=== PATIENT | male | born 1975 | race Caucasian/White ===

== ENCOUNTER 2023-08-06 09:52 | Emergency (ER) | payer OTHER, SELFPAY ==
[2023-08-06 10:02] VITALS: BP 113/87; PULSE 103; RESP 16; TEMP 36.4; O2SAT 99
--- NOTE | 2023-08-06 10:35 | ED.MALEGU ---
HPI - Male Genitourinary General Chief complaint: Urogenital-Male Stated complaint: Uti symptoms Time Seen by Provider: 08/06/23 10:31 Source: patient and RN notes reviewed Mode of arrival: ambulatory Limitations: no limitations History of Present Illness HPI Narrative: Patient presents today complaining of a 2 day history of urinary urgency, frequency, hematuria. Denies abdominal pain, flank pain, fever, sweats or chills, nausea or vomiting. He has taken no [id number] medication for symptoms prior to arrival. Related Data Home Medications Medication Instructions Recorded Confirmed atorvastatin 40 mg tablet 40 mg PO DAILY 08/06/23 08/06/23 dextromethorphan IR 45 1 tablet PO DIRECTED 08/06/23 08/06/23 mg-bupropion ER 105 mg biphasic tablet (Auvelity) eszopiclone 3 mg tablet 3 mg PO DAILY 08/06/23 08/06/23 insulin glargine U-300 conc 300 1 unit subcut DIRECTED 08/06/23 08/06/23 unit/mL (1.5 mL) subcutaneous pen ([employer] SoloStar U-300 Insulin) lamotrigine 200 mg tablet 200 mg PO DAILY 08/06/23 08/06/23 lorazepam 0.5 mg tablet 0.5 mg PO DIRECTED 08/06/23 08/06/23 quetiapine 200 mg tablet 200 mg PO DAILY 08/06/23 08/06/23 Allergies Allergy/AdvReac Type Severity Reaction Status Date / Time No Known Allergies Allergy Mild Verified 08/06/23 10:17 Review of Systems Review of Systems: CONSTITUTIONAL: Denies body aches, fever, chills, or sweats. EYES: Denies visual changes, redness, or discharge. ENT: Denies rhinorrhea, congestion, sore throat, or otalgia. CARDIOVASCULAR: Denies chest pain, palpitations, or edema. RESPIRATORY: Denies cough or dyspnea. GASTROINTESTINAL: Denies abdominal pain, nausea, vomiting, or diarrhea. GENITOURINARY: + dysuria, hematuria, urgency, frequency SKIN: Denies rash, itching, or wounds. MUSCULOSKELETAL: Denies back pain, joint pain, or myalgia. NEUROLOGIC: Denies headache, numbness, tingling, or weakness. PSYCH: Denies depression or anxiety. [facility] Past Medical History Medical History (Updated 08/06/23 @ 10:41 by Aline Ramírez, [facility], ) Diabetes High cholesterol Major depressive disorder Social anxiety disorder Comments At time of signature, I have reviewed and agree with nursing past medical, surgical, social and family history unless otherwise noted. Please see nursing chart for further information. There is no relevant family history pertinent to the presenting complaint Exam Narrative: GENERAL: Well-appearing, well-nourished, and in no acute distress. HEAD: Normocephalic, atraumatic. EYES: EOMI. No redness or drainage. Conjunctivae normal. ENT: Mucous membranes pink and moist. NECK: Normal AROM. CHEST: No respiratory distress. EXTREMITIES: Normal range of motion. No edema. SKIN: Warm, dry, no rash. Capillary refill normal. Normal skin turgor. NEURO: No focal deficits. Alert and oriented x3. Gait steady. PSYCH: Normal affect. No signs of depression or anxiety. Course Course Level of Care: Express Care Visit Vital Signs Vital signs: Vital Signs Temperature 97.6 F 08/06/23 10:02 Pulse Rate 103 H 08/06/23 10:02 Respiratory Rate 16 08/06/23 10:02 Blood Pressure 113/87 08/06/23 10:02 Pulse Oximetry 99 08/06/23 10:02 Temperature 97.6 F 08/06/23 10:02 Pulse Rate 103 H 08/06/23 10:02 Respiratory Rate 16 08/06/23 10:02 Blood Pressure 113/87 08/06/23 10:02 Pulse Oximetry 99 08/06/23 10:02 Reviewed MDM - Male Genitourinary MDM Narrative Medical decision making narrative: Urinalysis is consistent with UTI. Prescription for Keflex sent to pharmacy. Anticipatory guidance given. Differential Diagnosis Differential diagnosis: Likely urinary tract infection, prostatitis and other (Pyelonephritis) Lab Data Attestation: I reviewed the patient's lab results. Labs: Urine Glucose 3+ Reference Range: Negative Urine Bi
== END 2023-08-06 10:43 | disposition home or self-care (01) ==
PROVIDERS: Emergency Provider Nurse Practitioner; PCP Internal Medicine
DX: N30.01 Acute cystitis with hematuria (principal); E11.9 Type 2 diabetes mellitus without complications; E78.00 Pure hypercholesterolemia, unspecified; F32.9 Major depressive disorder, single episode, unspecified; F40.11 Social phobia, generalized
CPT/HCPCS: 81003; 87086; 99213; G0463

== ENCOUNTER 2024-05-01 17:04 | Emergency (ER) | payer OTHER, SELFPAY ==
[2024-05-01 17:17] VITALS: BP 151/90; PULSE 86; RESP 20; TEMP 36.6; O2SAT 99
[2024-05-01 17:20] VITALS: BP 151/90; PULSE 86; RESP 20; TEMP 36.6; O2SAT 99
--- NOTE | 2024-05-01 18:12 | ED_ITS ---
HPI - Eye Problem General Chief complaint: Eye Problems Stated complaint: left eye red,itchy,light sensitive Time Seen by Provider: 05/01/24 18:13 Source: patient, RN notes reviewed and old records reviewed Mode of arrival: ambulatory Limitations: no limitations History of Present Illness HPI Narrative: Patient presents with complaints of left eye pain. He wears contact lenses, states that yesterday he noticed some irritation, so took out his contact lens, has been wearing glasses since. He states that he is having some photophobia and left eye pain. He denies any known injury or trauma. Denies any visual disturbances. No other concerns or complaints at this Related Data Home Medications Medication Instructions Recorded Confirmed atorvastatin 40 mg tablet 40 mg PO DAILY 08/06/23 05/01/24 dextromethorphan IR 45 1 tablet PO DIRECTED 08/06/23 05/01/24 mg-bupropion ER 105 mg biphasic tablet (Auvelity) eszopiclone 3 mg tablet 3 mg PO DAILY 08/06/23 05/01/24 insulin glargine U-300 conc 300 1 unit subcut DIRECTED 08/06/23 05/01/24 unit/mL (1.5 mL) subcutaneous pen ([employer] SoloStar U-300 Insulin) lamotrigine 200 mg tablet 200 mg PO DAILY 08/06/23 05/01/24 lorazepam 0.5 mg tablet 0.5 mg PO DIRECTED 08/06/23 05/01/24 quetiapine 200 mg tablet 200 mg PO DAILY 08/06/23 05/01/24 metformin 500 mg tablet 500 mg PO BID 05/01/24 05/01/24 pantoprazole 40 mg tablet,delayed 50 mg PO DAILY 05/01/24 05/01/24 release Allergies Allergy/AdvReac Type Severity Reaction Status Date / Time No Known Allergies Allergy Mild Verified 05/01/24 17:16 Review of Systems Review of Systems: All systems reviewed & are unremarkable except as noted in HPI and below Constitutional: Constitutional: Reports no additional constitutional complaints Eyes: Eyes: Reports as per HPI, Reports irritation, Reports eye pain and Reports photophobia ENT: Reports system reviewed and no additional complaints, except as documented Cardiovascular: Cardiovascular: Reports no additional cardiovascular complaints Respiratory: Respiratory: Reports no additional respiratory complaints Gastrointestinal: Gastrointestinal: Reports no additional gastrointestinal complaints [facility] Past Medical History Medical History Diabetes High cholesterol Major depressive disorder Social anxiety disorder Comments At the time of my signature, I reviewed and agree with the nursing past medical, surgical, social, and family history. There is no relevant family history pertinent to the patient complaint. Exam Const: General: cooperative, no acute distress, alert and awake Orientation/consciousness: oriented to person, oriented to place and oriented to time HENMT: Head: normal to inspection Eyes: Alignment and Position: alignment normal and position normal Conjunctivae: conjunctival abnormality left conjunctival injection Sclera: scleral abnormality left scleral injection Cornea: corneas abnormal on the left fluorescein used and abrasion curved and at the following clock position (2 o clock) Resp: Effort & Inspection: normal respiratory effort and able to speak in complete sentences Auscultation: clear to auscultation bilaterally, no crackles, no rales, no rhonchi and no wheezes Cardio: Palpation: normal PMI Rate: regular rate Rhythm: regular rhythm Heart sounds: S1 normal heart sound present and S2 normal heart sound present Neuro: General: oriented to person, oriented to place and oriented to time Cranial nerves: Yes CN's II-XII intact bilaterally Psych: Appearance: grossly normal Thought process: Normal thought process present Insight: Good insight present (Psych) Judgement: Good judgement present (Psych) Course Course Level of Care: Express Care Visit Vital Signs Vital signs: Vital Signs Temperature 97.8 F 05/01/24 17:17 Pulse Rate 86 05/01/24 17:17 Respiratory Rate 20 05/01/24 17:17 Blood Pressure 151/90 H 05/01/24 17:17 Pulse Oximetry 99 05/01/24 17:17 Oxygen Delivery Room Air 05/01/24 17:17 Temperature 97.8 F 05/01/24 17:20 Pulse Rate 86 05/01/24 17:20 Respiratory Rate 20 05/01/24 17:20 Blood Pressure 151/90 H 05/01/24 17:20 Pulse Oximetry 99 05/01/24 17:20 Oxygen Delivery Room Air 05/01/24 17:20 Reviewed MDM - Eye Problem MDM Narrative Medical decision making narrative: Exam consistent with corneal abrasion. Patient advised to use drops as prescribed, follow with eye care provider. Do not wear contact lenses until cleared by professional services specialist. Discharge instructions reviewed with patient, as well as provided in writing per nursing staff. The instructions also include specific and strict return/GO TO THE ER as well as f/u information. All questions have been answered, and the patient deny any further questions with discharge and discharge plan. Some parts of this dictation were generated by voice recognition software and may contain typographical and/or grammatical inaccuracies. Differential Diagnosis Differential diagnosis: Likely corneal abrasion and conjunctivitis Medical Records Attestation: I reviewed the patient's medical records. Discharge Plan Discharge Clinical Impression: Corneal abrasion Qualifiers: Encounter type: initial encounter Laterality: left Qualified Code(s): S05.02XA - Injury of conjunctiva and corneal abrasion without foreign body, left eye, initial encounter Patient Disposition: Home, Self-Care Condition: Stable Instructions: Antibiotic Form, Corneal Abrasion (ED) Additional Instructions: Use medications as prescribed. Follow with eye care provider. No contacts until clear to wear them by eye care provider. Emergency department for new or worse Prescriptions: New tobramycin 0.3 % drops 1 drp LEFT EYE Q4H Qty: 5 0RF No Action atorvastatin 40 mg tablet 40 mg PO DAILY lamotrigine 200 mg tablet 200 mg PO DAILY quetiapine 200 mg tablet 200 mg PO DAILY lorazepam 0.5 mg tablet 0.5 mg PO DIRECTED eszopiclone 3 mg tablet 3 mg PO DAILY insulin glargine U-300 conc [[employer] SoloStar U-300 Insulin] 300 unit/mL (1.5 mL) insulin pen 1 unit SUBCUT DIRECTED Auvelity 45-105 mg tablet,IR,delayed rel,biphasic 1 tablet PO DIRECTED metformin 500 mg Tablet 500 mg PO BID pantoprazole 40 mg tablet,delayed release (DR/EC) 50 mg PO DAILY Follow-up/Referrals: Jesse,Carl Gonzalez MD [Primary Care Provider] - 1 Week Time of Disposition: 18:34
[2024-05-01] MEDS: TETRACAINE HCL 0.5% OPHTH SOLN 4 ML BTL LEFT EYE (18:17)
[2024-05-01] MEDS: FLUORESCEIN SOD 1 MG/STRIP LEFT EYE (18:18)
== END 2024-05-01 18:45 | disposition home or self-care (01) ==
PROVIDERS: Emergency Provider Nurse Practitioner Family; PCP Internal Medicine
DX: S05.02XA Injury of conjunctiva and corneal abrasion without foreign body, left eye, initial encounter (principal); E11.9 Type 2 diabetes mellitus without complications; Z79.899 Other long term (current) drug therapy; Z79.4 Long term (current) use of insulin; X58.XXXA Exposure to other specified factors, initial encounter
CPT/HCPCS: 99213; G0463

== ENCOUNTER 2025-06-14 00:10 | Day surgery (SDC) | payer OTHER, SELFPAY ==
[2025-05-24 15:29] VITALS: BMI 27.6
[2025-06-14 09:18] VITALS: BP 122/87; PULSE 102; RESP 18; TEMP 36.1; O2SAT 96
[2025-06-14] MEDS: LACTATED RINGERS 1,000 ML 150 ML IV CONT (09:30)
--- NOTE | 2025-06-14 09:51 | WPDANESEPPF ---
Anes - Initial Pre Proc Eval Procedure: Operation Date: 06/14/25 10:30 Proposed Procedures p Screening Colonoscopy - Randal Huston MD Date/Time: 06/14/25 09:51 Surgeon: Randal Huston MD Pre Op Diagnosis: Personal history of colon polyps, unspecified Patient Data Age: 49 Gender: M Height: 1.88 m Weight: 94.3 kg Last Vital Signs Temp 36.1 C L 06/14/25 09:18 Pulse 102 H 06/14/25 09:18 Resp 18 06/14/25 09:18 BP 122/87 06/14/25 09:18 Pulse Ox 96 06/14/25 09:18 O2 Del Method Room Air 06/14/25 09:18 Allergies Allergy/AdvReac Type Severity Reaction Status Date / Time No Known Allergies Allergy Mild Verified 06/14/25 09:15 Home Medications ?Medication ?Instructions ?Recorded ?Confirmed ?Type atorvastatin 40 mg tablet 40 mg PO DAILY 08/06/23 06/14/25 History dextromethorphan IR 45 1 tablet PO DIRECTED 08/06/23 06/14/25 History mg-bupropion ER 105 mg biphasic tablet (Auvelity) eszopiclone 3 mg tablet 3 mg PO DAILY 08/06/23 06/14/25 History insulin glargine U-300 conc 300 1 unit subcut DIRECTED 08/06/23 06/14/25 History unit/mL (1.5 mL) subcutaneous pen ([employer] SoloStar U-300 Insulin) lamotrigine 200 mg tablet 200 mg PO DAILY 08/06/23 06/14/25 History lorazepam 0.5 mg tablet 0.5 mg PO DIRECTED 08/06/23 06/14/25 History quetiapine 200 mg tablet 200 mg PO DAILY 08/06/23 06/14/25 History metformin 500 mg tablet 500 mg PO BID 05/01/24 06/14/25 History pantoprazole 40 mg tablet,delayed 50 mg PO DAILY 05/01/24 06/14/25 History release albuterol sulfate 90 mcg/actuation 1 inh inhalation TID PRN shortness 05/24/25 05/24/25 History aerosol inhaler of breath or wheezing eluxadoline 100 mg tablet (Viberzi) 100 mg PO BID 05/24/25 06/14/25 History emtricitabine 120 mg-tenofovir 1 tablet PO DAILY 05/24/25 06/14/25 History alafenamide fumarate 15 mg tablet (Descovy) glimepiride 2 mg tablet 2 mg PO DAILY 06/14/25 06/14/25 History Laboratory Tests 06/14/25 09:29 POC Capillary Glucose 217 H mg/dl (65-105) Patient hx anesthesia problems: none Family hx anesthesia problems: none Results Review: All pre-operative results and documents have been reviewed as part of the pre-operative evaluation. [facility] Past Medical History Medical History Social anxiety disorder Major depressive disorder High cholesterol Diabetes Social History Social History Smoking status: Never smoker Substance use type: does not use Living arrangements: with family Spiritual care concerns: No Anes - Eval Final PreProcedure Day of Procedure 06/14/25 09:51 Patient weight: overweight Heart: regular rate and rhythm Lungs: clear to auscultation Airway: Mallampati scale class III Neurological: alert and oriented Last oral intake: >/= 8 hours ASA classification: III Emergent: no Anesthetic plan: proceed Anesthesia type and monitoring: general GIVS and standard monitoring Results Review: All pre-operative results and documents have been reviewed as part of the pre-operative evaluation. Informed Consent: The patient's anesthetic plan and its attendant risks and benefits were discussed with the patient/family/POA. Questions were solicited and answers provided to the satisfaction of the patient/family/POA.
--- NOTE | 2025-06-14 10:01 | PM.HPGS ---
History of Present Illness History of Present Illness Consent: Risks, benefits, and alternatives have been discussed and questions answered. Patient agrees to proceed with procedure. Chief complaint: Personal history of colon polyps, unspecified Narrative: Jamel Alfred is a 49 year old male Review of Systems Review of Systems: All other review of the symptoms are negative physical PMFSH Past Medical History Medical History Social anxiety disorder Major depressive disorder High cholesterol Diabetes Social History Social History Smoking status: Never smoker Substance use type: does not use Living arrangements: with family Spiritual care concerns: No Meds Home Medications and Allergies Home Medications ?Medication ?Instructions ?Recorded ?Confirmed ?Type atorvastatin 40 mg tablet 40 mg PO DAILY 08/06/23 06/14/25 History dextromethorphan IR 45 1 tablet PO DIRECTED 08/06/23 06/14/25 History mg-bupropion ER 105 mg biphasic tablet (Auvelity) eszopiclone 3 mg tablet 3 mg PO DAILY 08/06/23 06/14/25 History insulin glargine U-300 conc 300 1 unit subcut DIRECTED 08/06/23 06/14/25 History unit/mL (1.5 mL) subcutaneous pen ([employer] SoloStar U-300 Insulin) lamotrigine 200 mg tablet 200 mg PO DAILY 08/06/23 06/14/25 History lorazepam 0.5 mg tablet 0.5 mg PO DIRECTED 08/06/23 06/14/25 History quetiapine 200 mg tablet 200 mg PO DAILY 08/06/23 06/14/25 History metformin 500 mg tablet 500 mg PO BID 05/01/24 06/14/25 History pantoprazole 40 mg tablet,delayed 50 mg PO DAILY 05/01/24 06/14/25 History release albuterol sulfate 90 mcg/actuation 1 inh inhalation TID PRN shortness 05/24/25 05/24/25 History aerosol inhaler of breath or wheezing eluxadoline 100 mg tablet (Viberzi) 100 mg PO BID 05/24/25 06/14/25 History emtricitabine 120 mg-tenofovir 1 tablet PO DAILY 05/24/25 06/14/25 History alafenamide fumarate 15 mg tablet (Descovy) glimepiride 2 mg tablet 2 mg PO DAILY 06/14/25 06/14/25 History Allergies Allergy/AdvReac Type Severity Reaction Status Date / Time No Known Allergies Allergy Mild Verified 06/14/25 09:15 Vital Signs Vital Signs - 24 hr 06/14/25 09:18 Temperature 97 F L Pulse Rate 102 H Respiratory Rate 18 Blood Pressure 122/87 Pulse Oximetry 96 Oxygen Delivery Room Air Assessment and Plan Assessment and plan (1) Polyp of colon: Code(s): K63.5 - Polyp of colon Status: Acute Plan 49-year-old male with history of colonic polyps. Patient is here for surveillance colonoscopy.
[2025-06-14 10:23] VITALS: BP 125/86; PULSE 83; RESP 23; O2SAT 96
[2025-06-14 10:33] VITALS: BP 112/78; PULSE 79; RESP 19; O2SAT 98
[2025-06-14 10:43] VITALS: BP 125/82; PULSE 78; RESP 16; O2SAT 100
== END 2025-06-14 10:50 | disposition home or self-care (01) ==
PROVIDERS: Internal Medicine Gastroenterology; PCP Internal Medicine; Referring Provider Internal Medicine; Visit Provider Internal Medicine Gastroenterology
PROC: 0DJD8ZZ Inspection of Lower Intestinal Tract, Via Natural or Artificial Opening Endoscopic (ICD-10-PCS; CPT 45378; principal; 2025-06-14 10:30)
DX: Z12.11 Encounter for screening for malignant neoplasm of colon (principal); Z86.0100 Personal history of colon polyps, unspecified; E11.9 Type 2 diabetes mellitus without complications
CPT/HCPCS: 45378; 82948; J2704; J7120